=== PATIENT | male | born 1980 | race Caucasian/White ===

== ENCOUNTER 2024-02-13 06:30 | Day surgery (SDC) | payer OTHER ==
[2024-02-13] VITALS (11 sets, daily range): BP systolic 97–120; BP diastolic 63–80; PULSE 60–73; TEMP 97.3–97.7
[~2024-02-13] VITALS: Ht 180.3 cm; Wt 111.6 kg
[~2024-02-13 06:30] MED LIST: LR 1,000 ML IV SCH
[2024-02-13] MEDS ORDERED: PRILOTC PO (07:59)
[2024-02-13] MEDS ORDERED: Indocyanine Green 12.5 MG in Water For Injection,Sterile 2.5 ML IV ONE (08:00)
[2024-02-13] MEDS ORDERED: AMARYL1 MG PO (08:05)
[2024-02-13] MEDS ORDERED: fentaNYL 50 MCG/ML 5 ML VIAL ONE (08:09)
[2024-02-13] MEDS ORDERED: Rocuronium 50 MG/5 ML Multi-Dose VIAL ONE (08:09)
--- NOTE | 2024-02-13 08:18 | NUR ---
CALL PLACED TO SHAILA BRUNO CRNA AND INFORMED PROVIDER OF PATIENTS BLOOD SUGAR OF 266. PATIENT DENIES CURRENTLY TAKING ANY MEDICATION FOR DIABETES, STATES HE WILL START GLIMEPIRIDE "SOMETIME AFTER SURGERY". NO NEW ORDERS FROM SHAILA Epstein CRNA.
[2024-02-13 08:58] LABS: BASO # 0.1 K/mm3 (0.0-0.2); BASO % 0.7 % (0.0-2.0); EOS # 0.3 K/mm3 (0.0-0.7); EOS % 2.8 % (0.0-4.0); GRAN # 6.8 K/mm3 (1.4-6.5); GRAN % 57.2 % (42.2-75.2); HEMATOCRIT 49.5 % (42.0-52.0); HEMOGLOBIN 16.8 g/dl (13.5-18.0); LYMPH # 3.8 K/mm3 (1.2-3.4); LYMPH % 32.3 % (20.0-51.0); MEAN CELL VOLUME 85 fl (80.0-100.0); MEAN CORPUSCULAR HEMOGLOBIN 29 pg (27-31); MEAN CORPUSCULAR HGB CONC 34 g/dl (33.0-37.0); MEAN PLATELET VOLUME 8.7 fl (7.4-10.4); MONO # 0.7 K/mm3 (0.1-0.6); MONO % 6.2 % (1.7-9.3); PLATELET COUNT 300 K/mm3 (130-400); RED BLOOD COUNT 5.85 M/mm3 (4.20-5.60); REDCELL DISTRIBUTION WIDTH-CV 13.2 % (11.5-14.5)
[2024-02-13 09:08] LABS: ALBUMIN 3.4 g/dL (3.5-5.0); BILIRUBIN,TOTAL 0.5 mg/dL (0.2-1.2); CALCIUM 9.7 mg/dL (8.4-10.2); POTASSIUM 4.3 mEq/L (3.5-4.5); TOTAL PROTEIN 7.2 g/dl (6.2-8.1)
[2024-02-13] MEDS ORDERED: dexAMETHasone 10 MG/ML VIAL ONE (09:11)
[2024-02-13] MEDS ORDERED: Ondansetron 4 MG/2 ML VIAL ONE (09:11)
[2024-02-13] MEDS ORDERED: Topical Skin Adhesive 1 EACH (1 ML) TOP ONE (09:19)
[2024-02-13] MEDS ORDERED: HYDROmorphone 1 MG/1 ML SYRINGE [PACU/SDC ONLY] IV PRN (09:30)
[2024-02-13] MEDS ORDERED: Meperidine 50 MG/ML 1 ML VIAL IV PRN (09:30)
[2024-02-13] MEDS ORDERED: fentaNYL 50 MCG/ML 1 ML SYRINGE/VIAL [PACU/SDC ONLY] IV PRN (09:30)
[2024-02-13] MEDS ORDERED: droPERidol 2.5 MG/ML 2 ML VIAL IV PRN (09:30)
[2024-02-13] MEDS ORDERED: Ondansetron 4 MG/2 ML VIAL IV PRN ×2 (09:30→10:45)
[2024-02-13] MEDS ORDERED: Morphine 2 MG/1 ML VIAL [PACU/SDC ONLY] IV PRN (09:30)
[2024-02-13] MEDS ORDERED: Ketorolac 30 MG/ML VIAL ONE (09:34)
[2024-02-13] MEDS ORDERED: MOTRIN 600600 MG/TAB PO (10:39)
[2024-02-13] MEDS ORDERED: NORCO 325 MG-51 TAB PO (10:39)
[2024-02-13] MEDS ORDERED: Glycopyrrolate 0.2 MG/ML 1 ML VIAL ONE (10:41)
[2024-02-13] MEDS ORDERED: Ibuprofen 600 MG TAB PO PRN (10:45)
[2024-02-13] MEDS ORDERED: Morphine 4 MG/ML VIAL IV PRN (10:45)
--- NOTE | 2024-02-13 11:10 | NUR ---
PATIENT RETURNED TO ROOM 6 DROWSY, AROUSES TO NAME AND ORIENTED X3. DENIES PAIN, NAUSEA AND SHORTNESS OF BREATH. STATES HE FEELS "VERY TIRED". BREATHING REGULAR AND UNLABORED ON 2L VIA NASAL CANNULA. SKIN WARM AND DRY. ABDOMEN ROUNDED, NONTENDER. 5 SURGICAL INCISIONS PRESENT TO ABDOMEN. FAR LEFT SURGICAL INCISION HAS MINIMAL DRIED BLOODY DRAINAGE, ALL OTHER 4 INCISIONS ARE CLEAN AND DRY. ALL INCISIONS HAVE SKIN GLUE INTACT. NURSE HANDOFF COMPLETED IN ROOM WITH INSPECTION OF SURGICAL SITES. CALL LIGHT IN REACH. SEE CHART FOR VITAL SIGNS.
--- NOTE | 2024-02-13 11:30 | NUR ---
PATIENT IS ALERT AND ORIENTED X3. REQUESTS TO REST IN BED AT THIS TIME, DENIES NAUSEA AND NEED FOR PAIN MEDICATION. PATIENT HAD WATER, EVANGELIST CRACKERS, SALTINES AND CHEESE. NO DYSPHAGIA. SPOUSE, NABILA, PRESENT IN ROOM. CALL LIGHT IN REACH.
--- NOTE | 2024-02-13 13:11 | NUR ---
PATIENT AMBULATED TO RESTROOM AND VOIDED WITHOUT DIFFICULTY. RATES PAIN 6/10 TO ABDOMEN DESCRIBED INTERMITTENT PAIN. DENIES PAIN MEDICATION STATING HE WILL BE "GOING BACK HOME SOON". PATIENT IS BELCHING. ALL ABDOMINAL SURGICAL SITES CLEAN, DRY AND INTACT.
--- NOTE | 2024-02-13 13:25 | NUR ---
1312: DISCHARGE TEACHING COMPLETED WITH PRINTED EDUCATION AND INSTRUCTIONS SENT HOME WITH PATIENT AND SPOUSE. FOLLOW UP APPOINTMENT DATE, TIME AND LOCATION COMMUNICATED TO PATIENT AND SPOUSE. BOTH VERBALIZED UNDERSTANDING. 1320: PATIENT STATES PAIN IS TOLERABLE, DENIES PAIN INTERVENTIONS. TOLERATING FOOD AND DRINK. ALL ABDOMINAL INCISIONS CLEAN AND DRY WITH SKIN GLUE INTACT. IV REMOVED. GAUZE AND COBAN PLACED OVER SITE. 1325: PATIENT CHANGED INTO PERSONAL CLOTHING AND AMBULATED TO WHEELCHAIR TO BE ESCORTED TO VEHICLE. PATIENT DISCHARGED HOME WITH [facility].
== END 2024-02-13 13:25 | disposition home or self-care (01) ==
LOC: SDCO 06:30
PROVIDERS: Surgery
DX: K80.10 Calculus of gallbladder with chronic cholecystitis without obstruction (principal); F17.210 Nicotine dependence, cigarettes, uncomplicated
CPT/HCPCS: J0690; J1100; J1885; J2405; J2704; J3010; J7120